=== PATIENT | female | born 1965 | race Caucasian/White ===

== ENCOUNTER 2017-08-18 21:58 | Emergency (ER) | payer OTHER ==
--- NOTE | 2017-08-18 22:14 | C.PDOC ---
History Of Present Illness Patient seen tonite due to cough and feeling short of breath. Denies any fever, no chest pain. Cough productiveof white mucus. Chief Complaint (Nursing): Shortness Of Breath History Per: Patient History/Exam Limitations: no limitations Onset/Duration Of Symptoms: Days Current Symptoms Are (Timing): Still Present Initiating Event: Upper Respiratory Illness Quality: denies: Sharp, Dull, Burning, Aching, Tightness, Pressure, "Pain" Exacerbating Factor(s): Coughing. denies: Laying Flat Current Respiratory Medications: See Home Med List Severity: Mild Pain Scale Rating Of: 0 Associated Symptoms: Productive Cough. denies: Fever, Chills, Bloody Cough, Dizziness, Light-headedness, Anxiety Recent travel outside of the [place]: No Additional History Per: Patient Past Medical History Vital Signs: Last Vital Signs Temp 98.0 F 08/18/17 22:05 Pulse 73 08/18/17 22:40 Resp 18 08/18/17 22:40 BP 134/79 08/18/17 22:40 Pulse Ox 100 08/18/17 22:45 - Medical History PMH: Hypercholesterolemia Surgical History: No Surg Hx Family History: States: Unknown Family Hx - Social History Hx Tobacco Use: No Hx Alcohol Use: No Hx Substance Use: No - Immunization History Hx Tetanus Toxoid Vaccination: No Hx Influenza Vaccination: No Hx Pneumococcal Vaccination: No Review Of Systems Constitutional: Negative for: Fever, Chills, Sweats Cardiovascular: Negative for: Chest Pain, Palpitations, Orthopnea, Paroxysmal Noc. Dyspnea, Edema Respiratory: Positive for: Cough, Shortness of Breath. Negative for: Hemoptysis , SOB with Excertion Gastrointestinal: Negative for: Nausea, Vomiting, Abdominal Pain, Diarrhea Genitourinary: Negative for: Dysuria, Frequency Musculoskeletal: Negative for: Neck Pain Skin: Negative for: Rash Neurological: Negative for: Weakness, Numbness, Incoordination Psych: Negative for: Anxiety Physical Exam - Physical Exam Appears: Well, Non-toxic Skin: Normal Color Eye(s): bilateral: Normal Inspection, PERRL, EOMI Nose: Normal Oral Mucosa: Moist Tongue: Normal Appearing Throat: Normal Neck: Normal Chest: Symmetrical, No Deformity, No Tenderness, No Ecchymosis, No Subcutaneous Emphysema Cardiovascular: Rhythm Regular, No Murmur, No JVD Respiratory: No Accessory Muscle Use, Rhonchi, No Stridor, No Wheezing, Other ( harsh BS) Gastrointestinal/Abdominal: Normal Exam Back: Normal Inspection ED Course And Treatment - Laboratory Results Result Diagrams: 08/18/17 22:30 08/18/17 22:30 ECG: Interpreted By Me, Viewed By Me ECG Rhythm: Sinus Rhythm, Nonspecific Changes ECG Interpretation: No Acute Changes, Abnormal Interpretation Of ECG: NSR, non spc T flattening of lateral leads, abnormal tracings, no acute changes. Rate From EC O2 Sat by Pulse Oximetry: 100 Pulse Ox Interpretation: Normal Disposition Counseled Patient/Family Regarding: Diagnosis - Disposition Referrals: [facility] [Outside] Disposition: HOME/ ROUTINE Disposition Time: 23:17 Condition: STABLE Prescriptions: Azithromycin [Z-Antwon] 250 mg PO DAILY #6 tab Promethazine DM [Phenergan DM Syrup] 5 ml PO TID #14 dose Instructions: Upper Respiratory Infection (ED) Forms: [facility] (Setswana) - POA Present On Arrival: None - Clinical Impression Clinical Impression: Upper respiratory infection
[2017-08-18 22:16] VITALS: RESP 18
[2017-08-18 22:33] LABS: BASO % 0.5 % (0.0-2.0); EOS # 0.2 K/uL (0.0-0.7); HEMATOCRIT 36.1 % (34.0-47.0); LYMPH # 2.4 K/uL (1.0-4.3); LYMPH % 32.6 % (20.0-40.0); MEAN CELL VOLUME 85.8 fL (81.0-99.0); MEAN CORPUSCULAR HEMOGLOBIN 29.4 pg (27.0-31.0); MEAN CORPUSCULAR HGB CONC 34.2 g/dL (33.0-37.0); MEAN PLATELET VOLUME 8.6 fL (7.2-11.7); MONO # 0.7 K/uL (0.0-0.8); MONO % 9.1 % (0.0-10.0); RED CELL DISTRIBUTION WIDTH 13.4 % (11.5-14.5); WHITE BLOOD COUNT 7.4 K/uL (4.8-10.8)
[2017-08-18 22:46] VITALS: O2SAT 100
[2017-08-18 22:53] LABS: ALB/GLOB RATIO 0.9 (1.0-2.1); ALKALINE PHOSPHATASE 68 U/L (38-126); ALT/SGPT 30 U/L (9-52); AST/SGOT 19 U/L (14-36); BILIRUBIN,TOTAL 0.3 mg/dL (0.2-1.3); BLOOD UREA NITROGEN 17 mg/dL (7-17); CALCIUM 8.2 mg/dl (8.6-10.4); CARBON DIOXIDE 25 mmol/L (22-30); CHLORIDE 102 mmol/L (98-107); GFR AFRICAN-AMERICAN > 60; GLUCOSE,RANDOM 92 mg/dL (65-105); POTASSIUM 3.5 mmol/L (3.6-5.2); SODIUM 133 mmol/L (132-148); TOTAL PROTEIN 7.9 g/dL (6.3-8.3)
[2017-08-18 23:46] VITALS: BP 118/77; PULSE 67; TEMP 97.5
--- NOTE | 2017-08-19 09:32 | RAD ---
HISTORY: SOB COMPARISON: No prior. TECHNIQUE: Chest PA and lateral FINDINGS: LUNGS: No active pulmonary disease. PLEURA: No significant pleural effusion identified. No pneumothorax apparent. CARDIOVASCULAR: Normal. OSSEOUS STRUCTURES: No significant abnormalities. VISUALIZED UPPER ABDOMEN: Normal. OTHER FINDINGS: None. IMPRESSION: No acute cardiopulmonary disease appreciated.
--- NOTE | 2017-08-19 17:47 | CARD ---
APPROVED REPORT EKG Measurement Heart [id number] ME 178P54 [id number] <Conclusion> Normal sinus rhythm Nonspecific T wave abnormality Abnormal ECG
== END 2017-08-18 23:29 | disposition home or self-care (01) ==
LOC: C.ER 21:58
DX: J06.9 Acute upper respiratory infection, unspecified (principal)

== ENCOUNTER 2018-02-05 18:05 | Emergency (ER) | payer SELFPAY ==
[2018-02-05 18:17] VITALS: TEMP 98
[2018-02-05] MEDS ORDERED: Albuterol 0.083% Inhal Sol (2.5 mg/3 mL) UD IH STA (18:54)
[2018-02-05] MEDS ORDERED: Albuterol-Ipratrop 3 mg / 0.5 (3 ml) UD IH STA (18:54)
[2018-02-05 19:14] LABS: BASO % 0.6 % (0.0-2.0); EOS # 0.3 K/uL (0.0-0.7); EOS % 5.3 % (0.0-4.0); HEMOGLOBIN 12.6 g/dL (11.0-16.0); LYMPH # 2.6 K/uL (1.0-4.3); LYMPH % 46.1 % (20.0-40.0); MEAN CELL VOLUME 86.1 fL (81.0-99.0); MEAN CORPUSCULAR HEMOGLOBIN 29.6 pg (27.0-31.0); MEAN CORPUSCULAR HGB CONC 34.4 g/dL (33.0-37.0); MEAN PLATELET VOLUME 8.9 fL (7.2-11.7); MONO # 0.3 K/uL (0.0-0.8); MONO % 5.8 % (0.0-10.0); NEUT # 2.4 K/uL (1.8-7.0); NEUT % 42.2 % (50.0-75.0); NRBC % 0.1 % (0.0-2.0); RBC 4.24 Mil/uL (3.80-5.20); RED CELL DISTRIBUTION WIDTH 13.7 % (11.5-14.5); WHITE BLOOD COUNT 5.6 K/uL (4.8-10.8)
[2018-02-05] MEDS ORDERED: Albuterol-Ipratrop 3 mg / 0.5 (3 ml) UD ONE (19:16)
[2018-02-05 19:25] LABS: ALB/GLOB RATIO 1.1 (1.0-2.1); ALBUMIN 3.9 g/dL (3.5-5.0); ALT/SGPT 27 U/L (9-52); AST/SGOT 24 U/L (14-36); BLOOD UREA NITROGEN 16 mg/dL (7-17); CALCIUM 9.2 mg/dl (8.6-10.4); GFR AFRICAN-AMERICAN > 60; GFR NON-AFRICAN AMERICAN > 60
--- NOTE | 2018-02-05 19:53 | C.PDOC ---
History Of Present Illness 52 year old female with a history of diabetes and hypertension presents to the emergency department with complaints of chest tightness and a cough persisting for the past week. Patient states her cough is productive with brown sputum, but denies fever or chills. Patient states she presents to the ED due to now being short of breath and experiencing tightness in her mid-chest which is worse with expiration. Patient reports that she does not have a past medical history of asthma and has never used an inhaler. Time Seen by Provider: 02/05/18 18:37 Chief Complaint (Nursing): Shortness Of Breath History Per: Patient History/Exam Limitations: no limitations Onset/Duration Of Symptoms: Days (7), Persistent Current Symptoms Are (Timing): Still Present Quality: Tightness Exacerbating Factor(s): Coughing, Other (deep expiration) Associated Symptoms: Productive Cough (brown sputum), Other (shortness of breath , chest tightness). denies: Fever, Chills Past Medical History Reviewed: Historical Data, Nursing Documentation, Vital Signs Vital Signs: Last Vital Signs Temp 98.0 F 02/05/18 18:12 Pulse 76 02/05/18 20:06 Resp 16 02/05/18 20:06 BP 127/81 02/05/18 20:06 Pulse Ox 99 02/05/18 20:06 - Medical History PMH: Diabetes, HTN, Hypercholesterolemia Surgical History: No Surg Hx Family History: States: No Known Family Hx - Social History Hx Tobacco Use: No Hx Alcohol Use: Yes Hx Substance Use: No - Immunization History Hx Tetanus Toxoid Vaccination: No Hx Influenza Vaccination: No Hx Pneumococcal Vaccination: No Review Of Systems Constitutional: Negative for: Fever, Chills Respiratory: Positive for: Cough, SOB with Excertion, Sputum (brown), Other ( chest tightness) Physical Exam - Physical Exam Appears: Non-toxic, No Acute Distress Skin: Normal Color, Warm Head: Atraumatic, Normacephalic Throat: Other (voice is raspy) Cardiovascular: Rhythm Regular Respiratory: Normal Breath Sounds (clear to auscultation), Rhonchi, Wheezing ( forced expiratory wheeze), No Other (hypoxic) Gastrointestinal/Abdominal: Normal Exam, Soft, No Tenderness, No Guarding, No Rebound Neurological/Psych: Oriented x3, Normal Speech, Normal Cognition ED Course And Treatment - Laboratory Results Result Diagrams: 02/05/18 19:09 02/05/18 19:09 Lab Interpretation: Normal ECG: Interpreted By Me ECG Rhythm: Sinus Bradycardia ECG Interpretation: No Acute Changes O2 Sat by Pulse Oximetry: 100 (RA) Pulse Ox Interpretation: Normal - Radiology CXR: Interpreted by Me CXR Interpretation: Yes: No Acute Disease Progress Note: Plan: EKG. CMP. CBC. CXR One View. Patient was treated with a Duoneb and Albuterol nebulized treatments. Albuterol 2.5mg IH. Duoneb 3ml IH. Nebulizer Treatment Reevaluation Time: 20:17 Reassessment Condition: Improved (Lungs clear with better inspiration and no wheezing.) Disposition Counseled Patient/Family Regarding: Studies Performed, Diagnosis, Need For Followup, Rx Given - Disposition Referrals: [facility] [Outside] Disposition: HOME/ ROUTINE Disposition Time: 20:18 Condition: IMPROVED Prescriptions: Azithromycin [Z-Antwon] 250 mg PO DAILY #6 tab Promethazine HCl/Codeine [Prometh-Codein 6.25-10 mg/5 ml] 5 ml PO QID PRN #120 syrup PRN Reason: Cough Instructions: Acute Bronchitis Forms: [employer] (Romansh) Print Language: AZERI - Clinical Impression Clinical Impression: Bronchitis - Scribe Statement The provider has reviewed the documentation as recorded by the Scribe (Tyrone Ruano) Provider Attestation: All medical record entries made by the Scribe were at my direction and personally dictated by me. I have reviewed the chart and agree that the record accurately reflects my personal performance of the history, physical exam, medical decision making, and the department course for this patient. I have also personally directed, reviewed, and agree with the discharge instructions and disposition.
[2018-02-05 20:07] VITALS: BP 127/81; PULSE 76; RESP 16
[2018-02-05 20:20] VITALS: O2SAT 100
--- NOTE | 2018-02-06 08:06 | RAD ---
Chest x-ray single frontal view History: Shortness of breath. Comparison: 08/18/2017 Findings: No focal infiltrate or effusion. Bibasilar breast shadows. Heart size within normal limits. Impression: No focal infiltrate or effusion.
--- NOTE | 2018-02-06 22:32 | CARD ---
APPROVED REPORT EKG Measurement Heart [id number] 178P21 [id number] <Conclusion> Sinus bradycardia Poor R wave progression - may be normal variant Borderlinel ECG
== END 2018-02-05 20:31 | disposition home or self-care (01) ==
LOC: C.ER 18:05
DX: J40 Bronchitis, not specified as acute or chronic (principal); I10 Essential (primary) hypertension; E78.00 Pure hypercholesterolemia, unspecified

== ENCOUNTER 2018-03-30 21:45 | Emergency (ER) | payer SELFPAY ==
[2018-03-30 22:03] VITALS: O2SAT 100
--- NOTE | 2018-03-30 23:55 | C.PDOC ---
History Of Present Illness 53 year old female presents to the ED c/o sore throat and fever for the past 3 days. Patient also reports having difficulty swallowing. 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 Patient denies rash, nausea, vomiting, recent travel, sick contacts. Time Seen by Provider: 03/30/18 22:29 Chief Complaint (Nursing): ENT Problem History Per: Patient History/Exam Limitations: None Onset/Duration Of Symptoms: Days (3) Current Symptoms Are (Timing): Still Present Quality (Mouth/Throat): Tenderness Anticoagulant/Antiplatlet Use?: No Recent Aspirin Use: No Past Medical History Reviewed: Historical Data, Nursing Documentation, Vital Signs Vital Signs: Last Vital Signs Temp 97.6 F 03/31/18 00:02 Pulse 51 L 03/31/18 00:02 Resp 20 03/31/18 00:02 BP 134/77 03/31/18 00:02 Pulse Ox 100 03/31/18 02:43 - Medical History PMH: Diabetes, HTN, Hypercholesterolemia Surgical History: No Surg Hx Family History: States: Unknown Family Hx - Social History Hx Tobacco Use: No Hx Alcohol Use: Yes Hx Substance Use: No - Immunization History Hx Tetanus Toxoid Vaccination: No Hx Influenza Vaccination: No Hx Pneumococcal Vaccination: No Review Of Systems Constitutional: Positive for: Fever. Negative for: Chills Eyes: Negative for: Vision Change ENT: Positive for: Throat Pain. Negative for: Nose Discharge, Nose Congestion, Throat Swelling Gastrointestinal: Negative for: Vomiting Skin: Negative for: Rash Physical Exam - Physical Exam Appears: Non-toxic, No Acute Distress Skin: Normal Color, Warm, Dry Head: Atraumatic, Normacephalic Eye(s): bilateral: Normal Inspection Ear(s): Bilateral: Normal Nose: No Discharge Oral Mucosa: Moist Throat: Erythema, No Exudate, No Mass Neck: Normal ROM, No Midline Cervical Tenderness, Supple Lymphatic: Adenopathy (submandibular) Chest: Symmetrical Cardiovascular: Rhythm Regular Respiratory: Normal Breath Sounds, No Rales, No Rhonchi, No Wheezing Extremity: Normal ROM, No Tenderness, No Swelling Neurological/Psych: Oriented x3, Normal Speech Gait: Steady ED Course And Treatment O2 Sat by Pulse Oximetry: 100 (ON Ra) Pulse Ox Interpretation: Normal Progress Note: Plan: - RSV (negative). - Throat culture. Patient is afebrile while in the ED tolerating PO in no acute respiratpry distress. Patient was advised to follow up with PMD for further evaluation. Disposition Counseled Patient/Family Regarding: Diagnosis, Need For Followup, Rx Given - Disposition Referrals: Rik Mary MD [Staff Provider] - Alfredo Stewart MD [Staff Provider] - Disposition: HOME/ ROUTINE Disposition Time: 23:53 Condition: STABLE Additional Instructions: Gargle with warm salt water Use chloraseptic spray for pain Take medications as directed Return to ER if worse Prescriptions: Cetirizine HCl [Zyrtec] 10 mg PO DAILY #14 capsule Ibuprofen [Motrin] 600 mg PO Q6H #20 tab Instructions: Sore Throat, Adult (DC) Forms: [employer] (Filipino) Print Language: ROMANSH - Clinical Impression Clinical Impression: Viral pharyngitis - 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 - Scribe Statement The provider has reviewed the documentation as recorded by the Scribe Parviz Florian All medical record entries made by the Scribe were at my direction and personally dictated by me. I have reviewed the chart and agree that the record accurately reflects my personal performance of the history, physical exam, medical decision making, and the department course for this patient. I have also personally directed, reviewed, and agree with the discharge instructions and disposition.
[2018-03-31 00:04] VITALS: BP 134/77; PULSE 51; RESP 20; TEMP 97.6
== END 2018-03-31 00:04 | disposition home or self-care (01) ==
LOC: C.ER 21:45
DX: J02.9 Acute pharyngitis, unspecified (principal)

== ENCOUNTER 2018-06-04 11:44 | Emergency (ER) | payer OTHER ==
[2018-06-04 12:34] VITALS: BP 132/76; PULSE 56; RESP 18; TEMP 97.9; O2SAT 100
[2018-06-04] MEDS ORDERED: Naproxen 550 mg Tab PO STA (12:55)
[2018-06-04] MEDS ORDERED: Naproxen 550 mg Tab PO ONE (13:13)
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
== END 2018-06-04 13:50 | disposition home or self-care (01) ==
LOC: C.ER 11:44
DX: M54.5 Low back pain (principal)

== ENCOUNTER 2018-11-30 01:23 | Emergency (ER) | payer SELFPAY ==
[2018-11-30 01:44] VITALS: PULSE 65
[2018-11-30] MEDS ORDERED: Sodium Chloride 0.9% 500 ML IV ONE (03:00)
[2018-11-30] MEDS ORDERED: Aluminum Hydroxide/Magnesium Hydroxide Susp (30 mL) PO STA (03:00)
[2018-11-30 03:41] LABS: BASO # 0.1 K/uL (0.0-0.2); BASO % 0.9 % (0.0-2.0); EOS # 0.2 K/uL (0.0-0.7); HEMOGLOBIN 11.8 g/dL (11.0-16.0); LYMPH # 1.4 K/uL (1.0-4.3); LYMPH % 16.8 % (20.0-40.0); MEAN CELL VOLUME 85.6 fL (81.0-99.0); MEAN CORPUSCULAR HEMOGLOBIN 28.1 pg (27.0-31.0); MEAN CORPUSCULAR HGB CONC 32.8 g/dL (33.0-37.0); MEAN PLATELET VOLUME 8.6 fL (7.2-11.7); MONO # 0.4 K/uL (0.0-0.8); MONO % 4.2 % (0.0-10.0); NEUT # 6.5 K/uL (1.8-7.0); NEUT % 76.1 % (50.0-75.0); RBC 4.21 Mil/uL (3.80-5.20); RED CELL DISTRIBUTION WIDTH 14.1 % (11.5-14.5); WHITE BLOOD COUNT 8.6 K/uL (4.8-10.8)
[2018-11-30] MEDS ORDERED: Aluminum Hydroxide/Magnesium Hydroxide Susp (30 mL) ONE (03:42)
[2018-11-30 03:56] LABS: ALB/GLOB RATIO 1.3 (1.0-2.1); ALT/SGPT 20 U/L (9-52); AST/SGOT 25 U/L (14-36); BLOOD UREA NITROGEN 16 mg/dL (7-17); CALCIUM 8.4 mg/dl (8.6-10.4); GFR NON-AFRICAN AMERICAN > 60; LIPASE 45 U/L (23-300)
--- NOTE | 2018-11-30 04:05 | C.PDOC ---
History Of Present Illness 53 year old female presents to the ED c/o dizziness described as spinning sensation. Patient reports that after getting up from watching TV she felt some dizziness associated with nausea. 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 Patient reports she ate steak at dinner at 18:00. Patient states her dizziness worsens with head movement and when walking. Patient denies fever, chills, diarrhea, rash., CP, SOB, palpitations, weakness, numbness, injury, fall, trauma. Time Seen by Provider: 11/30/18 01:53 Chief Complaint (Nursing): Abdominal Pain History Per: Patient History/Exam Limitations: no limitations Onset/Duration Of Symptoms: Hrs Current Symptoms Are (Timing): Still Present Location Of Pain/Discomfort: Epigastric Quality Of Discomfort: "Pain" Associated Symptoms: Nausea, Vomiting. denies: Diarrhea, Urinary Symptoms Recent travel outside of the [place]: No Additional History Per: Patient Abnormal Vaginal Bleeding: No Past Medical History Reviewed: Historical Data, Nursing Documentation, Vital Signs Vital Signs: Last Vital Signs Temp 97.2 F L 11/30/18 01:48 Pulse 65 11/30/18 01:48 Resp 14 11/30/18 01:48 BP 147/71 11/30/18 01:48 Pulse Ox 99 11/30/18 01:48 - Medical History PMH: Diabetes, HTN, Hypercholesterolemia Surgical History: No Surg Hx Family History: States: Unknown Family Hx - Social History Hx Tobacco Use: No Hx Alcohol Use: Yes Hx Substance Use: No - Immunization History Hx Tetanus Toxoid Vaccination: No Hx Influenza Vaccination: No Hx Pneumococcal Vaccination: No Review Of Systems Constitutional: Negative for: Fever, Chills Eyes: Negative for: Vision Change Cardiovascular: Negative for: Chest Pain, Palpitations Respiratory: Negative for: Cough, Shortness of Breath Gastrointestinal: Positive for: Nausea, Vomiting, Abdominal Pain Skin: Negative for: Rash Neurological: Positive for: Dizziness. Negative for: Weakness, Numbness, Headache Physical Exam - Physical Exam Appears: Non-toxic, No Acute Distress Skin: Normal Color, Warm, Dry Head: Atraumatic, Normacephalic Eye(s): bilateral: Normal Inspection, PERRL, EOMI, Other (no nystagmus) Oral Mucosa: Moist Neck: Normal ROM, No Midline Cervical Tenderness, Supple Chest: Symmetrical Cardiovascular: Rhythm Regular Respiratory: Normal Breath Sounds, No Rales, No Rhonchi, No Wheezing Gastrointestinal/Abdominal: Soft, Tenderness (epigastric), No Guarding, No Rebound Extremity: Normal ROM, No Tenderness, No Swelling Neurological/Psych: Oriented x3, Normal Speech, Normal Cognition, Other (reproducible dizziness with head movement ) Gait: Steady ED Course And Treatment - Laboratory Results Result Diagrams: 11/30/18 03:39 11/30/18 03:39 Lab Results: Total Bilirubin 0.3 mg/dL (0.2-1.3) 11/30/18 03:39 AST 25 U/L (14-36) 11/30/18 03:39 ALT 20 U/L (9-52) 11/30/18 03:39 Alkaline Phosphatase 77 U/L (38-126) 11/30/18 03:39 Total Protein 7.0 g/dL (6.3-8.3) 11/30/18 03:39 Albumin 4.0 g/dL (3.5-5.0) 11/30/18 03:39 Globulin 3.0 gm/dL (2.2-3.9) 11/30/18 03:39 Albumin/Globulin Ratio 1.3 (1.0-2.1) 11/30/18 03:39 Lipase 45 U/L (23-300) 11/30/18 03:39 O2 Sat by Pulse Oximetry: 99 (ON RA) Pulse Ox Interpretation: Normal Progress Note: Plan: - Labs. - Maalox 30 ml PO. - Antivert 25 mg PO. - Pepcid 20 mg IVP. - IV fluids. - Zofran 4 mg IVP. On reassessment, patient is resting comfortably, reports feeling better and is in no acute distress. Patient was instructed to follow up with physician/clinic in 1-2 days for further evaluation. Reevaluation Time: 04:59 Reassessment Condition: Improved Disposition - Disposition Referrals: [facility] [Outside] Disposition: HOME/ ROUTINE Disposition Time: 05:00 Condition: STABLE Additional Instructions: Take medications as directed Increase plenty of fluids Follow up in clinic Return to ER if worse Prescriptions: Famotidine [Pepcid] 20 mg PO DAILY #20 tab Meclizine [Meclizine*] 25 mg PO Q6 #10 tab Instructions: Vertigo (a Type of Dizziness) (DC), Gastritis (DC) Forms: [employer] ([place]) Print Language: BENGALI - Clinical Impression Clinical Impression: Vertigo, Gastritis - 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 - Scribe Statement The provider has reviewed the documentation as recorded by the Scribe Parviz Florian All medical record entries made by the Scribe were at my direction and personally dictated by me. I have reviewed the chart and agree that the record accurately reflects my personal performance of the history, physical exam, medical decision making, and the department course for this patient. I have also personally directed, reviewed, and agree with the discharge instructions and disposition.
[2018-11-30 04:48] VITALS: BP 124/77; RESP 21; TEMP 97.7
[2018-11-30 04:59] VITALS: O2SAT 99
== END 2018-11-30 05:24 | disposition home or self-care (01) ==
LOC: C.ER 01:23
DX: R42 Dizziness and giddiness (principal); K29.70 Gastritis, unspecified, without bleeding
CPT/HCPCS: 80053; 82948; 83690; 85025; 96374; 96375; 99285; J2405; J7040

== ENCOUNTER 2019-01-23 10:54 | Outpatient (CLI) | payer OTHER | END 2019-01-23 10:55 | disposition home or self-care (01) | LOC: C.LAB 10:54 | DX: E78.00 Pure hypercholesterolemia, unspecified (principal); E03.9 Hypothyroidism, unspecified; D64.9 Anemia, unspecified ==

== ENCOUNTER 2019-01-30 12:19 | Outpatient (CLI) | payer OTHER | END 2019-01-30 12:20 | disposition home or self-care (01) | LOC: C.MAMMO 12:19 | DX: Z12.31 Encounter for screening mammogram for malignant neoplasm of breast (principal) ==